=== PATIENT | female | born 1955 | race Caucasian/White ===

== ENCOUNTER 2017-07-07 16:41 | Emergency (ER) | payer MEDICARE, MEDICAID ==
--- NOTE | 2017-07-07 16:47 | ER Report ---
History and Physical Time Seen By MD: 16:41 (ARPITA APARICIO MD) HPI/ROS CHIEF COMPLAINT: Altered mental status HISTORY OF PRESENT ILLNESS: This is a 62 year old female. She was brought to the ER by EMS. Her friend who lives with her stated that he returned from work today and she was unresponsive with gurgling breath sounds. She was sleeping in the morning, so let her sleep in and does not know if she was okay at that time. She went to bed late last night, and that was the last time he can say that she is normal. He said that she has been treated with an antibiotic recently for cellulitis. She sees one of the physicians at [facility], we think Dr. Stuart. Unsure about her other history. Her friend indicated that he is unaware of any advanced directives in place. EMS indicated that she would move her extremities to sternal rub but no response to verbal or other stimuli and does not open her eyes. REVIEW OF SYSTEMS: Unable to obtain. (ARPITA APARICIO MD) Allergies: Coded Allergies: ciprofloxacin (Verified Allergy, Severe, RASH AND WHEEZING, 11/12/16) iodine (Verified Allergy, Severe, APNEA AND BLISTERS, 11/12/16) INTERNAL AND EXTERNAL IODINE Sulfa (Sulfonamide Antibiotics) (Verified Allergy, Mild, WHEEZING, 11/12/16 ) Home Meds Active Scripts Cephalexin 500 Mg Tab (KEFLEX 500 MG TAB) 500 Mg Tablet, 500 MG PO Q8H, #30 TAB Prov:TAMANNA STUART MD 06/27/17 Escitalopram Oxalate (ESCITALOPRAM OXALATE) 20 Mg Tablet, 20 MG PO QDAY, #30 TAB Prov:TAMANNA STUART MD 04/11/17 Fluticasone/Vilanterol 100/25 Mcg/Inh (BREO ELLIPTA 100/25 MCG) 1 Each Aer.pow.ba, 1 INH INH QDAY, #1 INH 2 Refills Prov:TAMANNA STUART MD 10/13/16 Albuterol Sulfate 0.083% (ALBUTEROL SULFATE 0.083%) 2.5 Mg/3 Ml Vial.neb, 2.5 MG INH Q4-6H, #100 INH 11 Refills Prov:TAMANNA STUART MD 10/12/16 Albuterol Sulfate 90 Mcg/Act (PROAIR HFA 90 MCG/ACT) 8.5 Gm Hfa.aer.ad, 1-2 PUFF IH PRN Y for SHORTNESS OF BREATH, #3 INHALER 3 Refills Prov:TAMANNA STUART MD 10/12/16 Rosuvastatin Calcium (Rosuvastatin Calcium) 10 Mg Tablet, 1 TAB PO DAILY, #30 TAB 11 Refills Prov:TAMANNA STUART MD 06/02/16 Reported Medications Zolpidem Tartrate (ZOLPIDEM TARTRATE) 5 Mg Tablet, 0.5 TAB PO QHS, TAB 05/19/17 Calcium Crb&Cit/D3/Min34/Mina (CITRACAL + BONE DENSITY TABLET) 1 Each Tablet, 2 TAB PO QHS 11/12/16 Cholecalciferol (Vitamin D3) (VITAMIN D3) 1,000 Unit Tablet, 2000 UNIT PO QDAY, TAB 06/07/16 Glucosa Horvath 2KCL/Chondroitin Horvath (GLUCOSAMINE & CHONDROITIN CAP) 1 Each Capsule, 1 EACH PO QDAY, CAPSULE 06/07/16 Naproxen Sodium (ALEVE) Unknown Strength Capsule, 1 CAP PO PRN, CAPSULE 06/02/16 Ibuprofen (ADVIL) 200 Mg Tablet, 1-2 TAB PO Q6-8H Y for prn 06/02/16 Mirabegron (MYRBETRIQ) 50 Mg Tab.er.24h, 1 TAB PO DAILY 11/05/15 Solifenacin Succinate (VESICARE) 10 Mg Tablet, 1 TAB PO DAILY 11/05/15 Flaxseed/Omega3,6,9/Fatty Acid (FLAX SEED OIL 1,300 MG SOFTGEL) 1 Each Capsule, 1 EACH PO DAILY, CAPSULE 11/05/15 Euless-3 Fatty Acids (FISH OIL) 300 Mg Capsule, PO DAILY, CAPSULE 11/05/15 Multivit-Min/FA/Lutein/Zeaxant (Macular Vitamin Tablet) 1 Each Tablet, 1 TAB PO DAILY 11/05/15 Past Medical/Surgical History Past medical history: Paraplegia, macular degeneration, hypertension, hyperlipidemia, asthma, superpubic catheter managed by Dr. Jo, osteoporosis , depression, osteomyelitis. Past surgical history tonsillectomy, hysterectomy, spinal surgery. T12-L1 bone fusion with Cevallos rods after fractured spine, multiple skin debridements (BULL MALDONADO DO) Reviewed Nurses Notes: Yes (ARPITA APARICIO MD) Constitutional Vital Sign - Last 24 Hours 07/07/17 07/07/17 07/07/17 07/07/17 16:45 16:45 16:52 17:00 Temp 98.0 Pulse 133 124 111 Resp 55 42 42 B/P (MAP) 124/84 120/71 (87) Pulse Ox 92 92 O2 Delivery Non-Rebreather 07/07/17 07/07/17 07/07/17 07/07/17 17:06 17:12 17:15 17:15 Pulse 124 Resp 6 B/P (MAP) 189/111 (137) 132/76 (94) Pulse Ox 97 FiO2 50.0 07/07/17 07/07/17 07/07/17 07/07/17 17:30 17:45 18:00 18:15 Pulse 118 115 114 109 Resp 14 14 9 Pulse Ox 93 94 95 96 07/07/17 07/07/17 07/07/17 07/07/17 18:26 18:31 18:35 18:42 Pulse 106 Resp 6 B/P (MAP) 142/91 (108) Pulse Ox 97 97 O2 Delivery Mechanical Ventilator FiO2 45.0 45.0 07/07/17 07/07/17 07/07/17 07/07/17 18:46 19:01 19:16 19:21 Pulse 104 103 104 104 Resp 8 13 8 13 Pulse Ox 95 96 96 96 07/07/17 19:36 Pulse 104 Resp 26 B/P (MAP) 142/91 (108) Pulse Ox 97 (BULL MALDONADO DO) Physical Exam General Appearance: Comatose. Unresponsive with non-rebreather in place at 15 liters. Makes a few spontaneous movements of arms, but nothing meaningful. Loud gurgling sounds with breathing. Eyes: Pupils are equal, round. Reactive to light. No pallor, injection or icterus. ENT: Mucous membranes are moist. Lots of debris in her lori and posterior oropharynx. Normal tympanic membranes and canals. Neck: Midline trachea. No swelling noted. Respiratory: Lungs with loud wet rhonchi, unable to appreciate more. Cardiovascular: Unable to hear heart sounds over the breathing. Pulse at 120 radial and PT/DP areas. Slight delay in cap refill. Trace edema in ankles. Gastrointestinal: Abdomen is soft, Nondistended. No masses or organomegaly. Genitourinary: Byrne catheter in place. Smelly urine. Neurological: Paraplegic, no movement of the legs. Has limited movement of arms with painful stimuli. Does not respond otherwise. Skin: Warm and dry. Has skin breakdown in the gluteal fold above the rectum, has some signs of early pressure spots on left heel. Some rough skin in legs. No sign of cellulitis at this time. Musculoskeletal: No deformities noted other than from past surgeries. DIFFERENTIAL DIAGNOSIS: After history and physical exam, differential diagnosis was considered for altered mental status including but not limited to hypoglycemia, infectious process, electrolyte abnormality, head injury and intoxicants. ([facility] Medical Decision Making Data Points Result Diagram: 07/07/17 0000 07/07/17 0000 Laboratory Hematology Test 07/07/17 00:00 07/07/17 16:52 Red Blood Count 4.69 M/uL (4.17-5.56) Mean Corpuscular Volume 84.0 fL (80.0-96.0) Mean Corpuscular Hemoglobin 28.3 pg (26.0-33.0) Mean Corpuscular Hemoglobin Concent 33.6 g/dL (32.0-36.0) Red Cell Distribution Width 14.6 % (11.5-14.5) Mean Platelet Volume 7.2 fL (7.2-11.1) Neutrophils (%) (Auto) 93.5 % (39.4-72.5) Lymphocytes (%) (Auto) 2.4 % (17.6-49.6) Monocytes (%) (Auto) 4.0 % (4.1-12.4) Eosinophils (%) (Auto) 0.0 % (0.4-6.7) Basophils (%) (Auto) 0.1 % (0.3-1.4) Nucleated RBC Relative Count (auto) 0.0 /100WBC Neutrophils # (Auto) 22.1 K/uL (2.0-7.4) Lymphocytes # (Auto) 0.6 K/uL (1.3-3.6) Monocytes # (Auto) 1.0 K/uL (0.3-1.0) Eosinophils # (Auto) 0.0 K/uL (0.0-0.5) Basophils # (Auto) 0.0 K/uL (0.0-0.1) Nucleated RBC Absolute Count (auto) 0.00 K/uL Peripheral Blood Smear Yes Y/N Sodium Level 135 mmol/L (137-145) Potassium Level 3.3 mmol/L (3.5-5.0) Chloride Level 99 mmol/L (98-107) Carbon Dioxide Level 21 mmol/L (22-31) Blood Urea Nitrogen 17 mg/dl (7-18) Creatinine 0.50 mg/dl (0.52-1.04) Glomerular Filtration Rate Calc > 60.0 Random Glucose 171 mg/dl (75-110) Lactate 1.8 mmol/L (0.7-2.1) Calcium Level 9.1 mg/dl (8.4-10.2) Total Bilirubin 0.7 mg/dl (0.2-1.3) Aspartate Amino Transf (AST/SGOT) 28 U/L (0-35) Alanine Aminotransferase (ALT/SGPT) 34 U/L (0-56) Alkaline Phosphatase 105 U/L (0-126) Total Protein 7.9 gm/dl (6.3-8.2) Albumin 4.1 g/dl (3.5-5.0) Prothrombin Time 13.6 seconds (12.0-14.4) Prothromb Time International Ratio 1.04 Activated Partial Thromboplast Time 25 seconds (23-35) Chemistry Test 07/07/17 00:00 07/07/17 16:52 White Blood Count 23.7 k/uL (4.5-11.0) Red Blood Count 4.69 M/uL (4.17-5.56) Hemoglobin 13.2 g/dL (12.0-16.0) Hematocrit 39.4 % (34.0-47.0) Mean Corpuscular Volume 84.0 fL (80.0-96.0) Mean Corpuscular Hemoglobin 28.3 pg (26.0-33.0) Mean Corpuscular Hemoglobin Concent 33.6 g/dL (32.0-36.0) Red Cell Distribution Width 14.6 % (11.5-14.5) Platelet Count 592 K/uL (150-450) Mean Platelet Volume 7.2 fL (7.2-11.1) Neutrophils (%) (Auto) 93.5 % (39.4-72.5) Lymphocytes (%) (Auto) 2.4 % (17.6-49.6) Monocytes (%) (Auto) 4.0 % (4.1-12.4) Eosinophils (%) (Auto) 0.0 % (0.4-6.7) Basophils (%) (Auto) 0.1 % (0.3-1.4) Nucleated RBC Relative Count (auto) 0.0 /100WBC Neutrophils # (Auto) 22.1 K/uL (2.0-7.4) Lymphocytes # (Auto) 0.6 K/uL (1.3-3.6) Monocytes # (Auto) 1.0 K/uL (0.3-1.0) Eosinophils # (Auto) 0.0 K/uL (0.0-0.5) Basophils # (Auto) 0.0 K/uL (0.0-0.1) Nucleated RBC Absolute Count (auto) 0.00 K/uL Peripheral Blood Smear Yes Y/N Glomerular Filtration Rate Calc > 60.0 Lactate 1.8 mmol/L (0.7-2.1) Calcium Level 9.1 mg/dl (8.4-10.2) Total Bilirubin 0.7 mg/dl (0.2-1.3) Aspartate Amino Transf (AST/SGOT) 28 U/L (0-35) Alanine Aminotransferase (ALT/SGPT) 34 U/L (0-56) Alkaline Phosphatase 105 U/L (0-126) Total Protein 7.9 gm/dl (6.3-8.2) Albumin 4.1 g/dl (3.5-5.0) Prothrombin Time 13.6 seconds (12.0-14.4) Prothromb Time International Ratio 1.04 Activated Partial Thromboplast Time 25 seconds (23-35) Coagulation Test 07/07/17 16:52 Prothrombin Time 13.6 seconds Prothromb Time International Ratio 1.04 Activated Partial Thromboplast Time 25 seconds (BULL MALDONADO DO) EKG/Imaging Imaging Results: CT scan of the head was obtained. The results of the study are EXAMINATION: CT head/brain without contrast HISTORY: Altered mental status TECHNIQUE: Contiguous axial images were obtained from the skull base to the vertex without intravenous contrast. One of the following dose optimization techniques was utilized in the performance of this exam: Automated exposure control; adjustment of the mA and/ or kV according to the patient's size; or use of an iterative reconstruction technique. Specific details can be referenced in the facility's radiology CT exam operational policy. COMPARISON STUDIES: None FINDINGS: There is a large right parenchymal hemorrhage epicenter in the right basal ganglia region with the major hemorrhagic component measuring approximately 7 x 4.6 x 3.5 cm. Additional parenchymal satellite hemorrhagic changes are seen within the right frontal lobe are seen measuring up to 2.5 cm in size. Pneumbra of edema circumscribing the hemorrhage. 8 mm midline shift from right to left. There is an intraventricular extension of the hemorrhage with the right frontal lateral occipital third and fourth ventricles are demonstrating blood. Subarachnoid blood is also seen in the right frontal lobe. Small subarachnoid blood seen in the upper vertex cuts of the left frontal lobe (axial image 67.) There is a small amount of perceived blood paralleling the falx anteriorly. Additional subarachnoid blood is seen in the left posterior parietal lobe (images 48 through 58) and a small amount of subarachnoid blood seen in the left occipital lobe (image 52.) Bone images demonstrates no calvarial or skull base abnormalities. Impression: 1. Large right parenchymal hemorrhage with an epicenter in the right basal ganglia with extension into the right frontal lobe as described. This is associated with interventricular blood. There is subarachnoid blood seen in the right frontal lobe. 8 mm midline shift from right to left 2. Additional areas of subarachnoid blood seen in the left frontal posterior parietal and occipital lobes. 3. Etiology of the hemorrhage could be hypertensive in nature with extension into the ventricular system. Amyloid angiopathy also a possibility. The left subarachnoid blood could represent secondary posttraumatic subarachnoid blood is the patient experienced a fall. The study was read by the radiologist. I viewed the images myself on the PACS system. Results: CT scan of the chest, abdomen and pelvis was obtained. The results of the study are Examination: CT chest, abdomen, and pelvis with contrast Comparison: None. History: altered mental status. Procedure: Multiplanar contrast-enhanced imaging of the chest, abdomen, and pelvis with 75 mL intravenous Isovue 370. One of the following dose optimization techniques was utilized in the performance of this exam: Automated exposure control; adjustment of the mA and/or kV according to the patient's size ; or use of an iterative reconstruction technique. Specific details can be referenced in the facility's radiology CT exam operational policy. Findings: CT chest: Mediastinum: Cardiac chamber size is normal. No pericardial effusion. Main pulmonary artery size is normal. Thoracic aorta minimal atherosclerosis. No aneurysm or dissection. No mediastinal hemorrhage. No thoracic lymph node enlargement. Lungs and pleura: Ill-defined patchy consolidation and tree-in-bud nodular density in both lower lungs. No pneumothorax, edema, or effusion. Airways: Tip of the endotracheal tube is 1.6 cm above the arleth. Moderate tracheomalacia of the trachea distal to the endotracheal tube as well as mild bilateral bronchomalacia. Diaphragm: Intact. CT abdomen and pelvis: Liver: Negative Gallbladder and biliary system: Cholelithiasis. No pericholecystic inflammation. 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 No renal mass or hydronephrosis. Urinary bladder contains a suprapubic catheter. Vessels: Moderate aortoiliac atherosclerosis. No aneurysm. No retroperitoneal hemorrhage. Portal venous system and IVC are unremarkable. Bowel and mesentery: Stomach is mildly distended but otherwise unremarkable. No small bowel obstruction. Appendix is within normal limits. Minimal stool in the colon. No bowel or mesenteric inflammation. Pelvic organs: Hysterectomy. No adnexal mass. Free air/free fluid: None Lymph nodes: Negative Abdominal wall and subcutaneous tissues: Abdominal wall is intact. No focal abnormality within the visualized subcutaneous soft tissues. Osseous structures: Thoracolumbar spine: Thoracolumbar junction posterior fusion with laminar hooks at T10 and L2. Surgical hardware is intact and there is no evidence of acute thoracolumbar vertebral body height loss or malalignment. Pelvic ring: Severe chronic-appearing distortion of the pelvis and hips. Sacroiliac joint alignment is maintained with partial fusion of the right sacroiliac joint. Advanced destruction and resorption of the pubic symphysis. Both hips are dislocated with near-complete resorption of both femoral head and necks. Additionally, there is irregular destruction of sclerosis of both inferior pubic rami concerning for osteomyelitis. There is extensive increased density and inflammation of the soft tissues surrounding particularly the right inferior pubic ramus as well as a 1.0 x 2.0 x 2.2 cm fluid collection in the region of the issue tuberosity. A separate 2.4 x 1.4 x 1.3 cm collection is present along the posterior margin of the right inferior pubic ramus. There is likely a 1 cm fluid collection in the superficial subcutaneous soft tissues as well. Ribs: No acute findings. Visualized sternum, scapula, and clavicles: No acute fracture. Bilateral glenohumeral osteoarthritis. IMPRESSION: 1. Intubation. 2. Bilateral lower lung patchy consolidation and ill-defined tree-in-bud density suggestive of an infectious bronchiolitis versus aspiration pneumonitis. 3. 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 Additional nonacute findings as detailed above. The study was read by the radiologist. I viewed the images myself on the PACS system. (BULL MALDONADO DO) ED Course/Re-evaluation ED Course Procedure: Rapid sequence intubation. Indication for the procedure was respiratory failure and GCS of 3. The patient was preoxygenated with 100% oxygen by bag-valve mask. The patient was given the following IV medications: rocuronium and Etomidate, further sedation with propofol. The patient was orally endotracheally intubated using the Glidescope with a 7.0 ETT. Unable to pass ETT despite good visualization. Use of bouge device through cords with visualization and passing ETT over the bouge. Tracheal intubation was confirmed by direct visualization; with misting on the tube; breath sounds were auscultated equally bilaterally; Appropriate change on CO2 detector/capnography monitor. Chest X-ray shows ETT in good position. The procedure was performed by my PA, Rodriguez, and myself. (ARPITA APARICIO MD) Clinical Indication for ER IV: IV Access ED Course Care was assumed at shift change with diagnostic CT pending from Dr. Aparicio. Patient intubated on ventilator. Her vitals are stable. Her saturations are adequate. CAT scan returns with obvious large large parenchymal hemorrhage 7 cm at its largest dimension with 8 mm of midline shift. Patient's records were finally obtained. From internal medicine clinic. She was seen on June 27 for cellulitis of the right lower extremity and started on Keflex. Patient's on ventilator something rate of 14, tidal volume 450, PEEP of 5, pressure support of 15, FiO2 of 45. Patient's vital signs are stable. A blood pressure of 142/90, heart rate of 103, patient was given Zosyn for possible aspiration pneumonia. 07/07/2017 7:02:03 pm case discussed with Dr. Hernandez neurosurgery at [facility] who advises transfer to [facility] in [place], [place]. Transfer center will again activating connection with them. 07/07/2017 7:15:11 pm case discussed with Dr. Mejía, neurology at [facility]. He will call back shortly with neurosurgical consultation. They will accept the patient for transfer. 07/07/2017 7:28:37 pm case discussed with Dr. Hernandez neurosurgery at the [facility], who accepts the patient for transfer to her facility. Transfer will occur by air ambulance, which should be here in 10 minutes. Decision to Disposition Date: Jul 07, 2017 Decision to Disposition Time: 18:39 Critical Care Time I spent a total of 90 minutes of critical care time in obtaining history, performing a physical exam, bedside monitoring of interventions, collecting and interpreting tests and discussion with consultants but not including time spent performing procedures. (BULL MALDONADO DO) Depart Departure Latest Vital Signs Vital Signs Date Time Temp Pulse Resp B/P (MAP) Pulse Ox O2 Delivery O2 Flow Rate FiO2 07/07/17 19:36 104 26 142/91 (108) 97 07/07/17 18:42 45.0 07/07/17 18:35 Mechanical Ventilator 07/07/17 16:45 98.0 (BULL MALDONADO DO) Impression: Primary Impression: Intraparenchymal hemorrhage of brain Additional Impressions: History of paraplegia History of asthma History of hyperlipidemia Suprapubic catheter Condition: Critical Disposition: [facility]FER TO [facility] Problem Qualifiers ARPITA APARICIO MD Jul 07, 2017 16:47 BULL MALDONADO DO Jul 07, 2017 18:40
[2017-07-07] MEDS ORDERED: NS(*) 0.9% 1000 ML BAG 1,000 ML IV ONE (16:50)
[2017-07-07] MEDS ORDERED: PROPOFOL(*)1000 MG/100 ML VIAL 100 ML IV PRN (17:30)
[2017-07-07] MEDS ORDERED: EMS NS 0.9%(*) 1000 ML BAG 1,000 ML IV ONE (17:30)
[2017-07-07] MEDS ORDERED: ROCURONIUM BROM 10 MG/ML 10 ML IVP ONE (17:30)
[2017-07-07] MEDS ORDERED: ETOMIDATE 20 MG/10 ML VIAL IVP ONE (17:30)
[2017-07-07 17:36] LABS: PLATELET COUNT, AUTOMATED 592 K/uL (150-450)
[2017-07-07] MEDS ORDERED: IOPAMIDOL 76% 75 ML INFUS BTL 75 ML ONE (17:44)
--- NOTE | 2017-07-07 17:48 | RADIOLOGY IMAGING REPORT ---
FACILITY: [facility] [place] PATIENT NAME: Emi Valdez : 1955 MR: [id number] V: [id number] EXAM DATE: ORDERING PHYSICIAN: ARPITA APARICIO TECHNOLOGIST: Location: [facility] [place] Patient: Emi Valdez : 1955 Visit/Account:[id number] Date of Sevice: 07/07/2017 Examination: CHEST SINGLE AP Comparison: None. History: Altered mental status. Findings: Tip of the endotracheal tube is approximately 4 cm above the arleth. Cardiac and hilar cont our size is within normal limits. No consolidation, nodule, or peribronchial inflammation. Incomplete ly visualized thoracolumbar hardware. Osseous structures are intact. IMPRESSION: 1. Intubation. 2. No evidence of acute cardiopulmonary disease. Report Dictated By: Leonidas Landry MD at 07/07/2017 5:42 PM Report E-Signed By: Leonidas Landry MD at 07/07/2017 5:43 PM WSN:[id number]
[2017-07-07 18:39] LABS: INR 1.04
--- NOTE | 2017-07-07 18:44 | RADIOLOGY IMAGING REPORT ---
FACILITY: [facility] [place] PATIENT NAME: Emi Valdez : 1955 MR: [id number] V: [id number] EXAM DATE: ORDERING PHYSICIAN: ARPITA APARICIO TECHNOLOGIST: Location: [facility] [place] Patient: Emi Valdez : 1955 Visit/Account:[id number] Date of Sevice: 07/07/2017 HEAD W/O CONTRAST EXAMINATION: CT head/brain without contrast HISTORY: Altered mental status TECHNIQUE: Contiguous axial images were obtained from the skull base to the vertex without intravenou s contrast. One of the following dose optimization techniques was utilized in the performance of this exam: Autom ated exposure control; adjustment of the mA and/or kV according to the patient's size; or use of an i terative reconstruction technique. Specific details can be referenced in the facility's radiology C T exam operational policy. COMPARISON STUDIES: None FINDINGS: There is a large right parenchymal hemorrhage epicenter in the right basal ganglia region with the ma tim hemorrhagic component measuring approximately 7 x 4.6 x 3.5 cm. Additional parenchymal satellite hemorrhagic changes are seen within the right frontal lobe are seen measuring up to 2.5 cm in size. P neumbra of edema circumscribing the hemorrhage. 8 mm midline shift from right to left. There is an intraventricular extension of the hemorrhage with the right frontal lateral occipital thi rd and fourth ventricles are demonstrating blood. Subarachnoid blood is also seen in the right fronta l lobe. Small subarachnoid blood seen in the upper vertex cuts of the left frontal lobe (axial image 67.) The re is a small amount of perceived blood paralleling the falx anteriorly. Additional subarachnoid bloo d is seen in the left posterior parietal lobe (images 48 through 58) and a small amount of subarachno id blood seen in the left occipital lobe (image 52.) Bone images demonstrates no calvarial or skull base abnormalities. Impression: 1. Large right parenchymal hemorrhage with an epicenter in the right basal ganglia with extension int o the right frontal lobe as described. This is associated with interventricular blood. There is subar achnoid blood seen in the right frontal lobe. 8 mm midline shift from right to left 2. Additional areas of subarachnoid blood seen in the left frontal posterior parietal and occipital l obes. 3. Etiology of the hemorrhage could be hypertensive in nature with extension into the ventricular sys tem. Amyloid angiopathy also a possibility. The left subarachnoid blood could represent secondary pos ttraumatic subarachnoid blood is the patient experienced a fall. Report Dictated By: Gio Finley MD at 07/07/2017 6:20 PM Report E-Signed By: Gio Finley MD at 07/07/2017 6:39 PM WSN:[id number]
[2017-07-07 19:36] VITALS: BP 142/91
--- NOTE | 2017-07-07 19:40 | RADIOLOGY IMAGING REPORT ---
FACILITY: [facility] PATIENT NAME: Emi Valdez : 1955 MR: [id number] V: [id number] EXAM DATE: ORDERING PHYSICIAN: ARPITA APARICIO TECHNOLOGIST: Location: [facility] [place] Patient: Emi Valdez : 1955 Visit/Account:[id number] Date of Sevice: 07/07/2017 Examination: CT chest, abdomen, and pelvis with contrast Comparison: None. History: altered mental status. Procedure: Multiplanar contrast-enhanced imaging of the chest, abdomen, and pelvis with 75 mL intrave nous Isovue 370. One of the following dose optimization techniques was utilized in the performance of this exam: Automated exposure control; adjustment of the mA and/or kV according to the patient's siz e; or use of an iterative reconstruction technique. Specific details can be referenced in the [facility]'s radiology CT exam operational policy. Findings: CT chest: Mediastinum: Cardiac chamber size is normal. No pericardial effusion. Main pulmonary artery size is n ormal. Thoracic aorta minimal atherosclerosis. No aneurysm or dissection. No mediastinal hemorrhage. No thoracic lymph node enlargement. Lungs and pleura: Ill-defined patchy consolidation and tree-in-bud nodular density in both lower lung s. No pneumothorax, edema, or effusion. Airways: Tip of the endotracheal tube is 1.6 cm above the arleth. Moderate tracheomalacia of the trac hea distal to the endotracheal tube as well as mild bilateral bronchomalacia. Diaphragm: Intact. CT abdomen and pelvis: Liver: Negative Gallbladder and biliary system: Cholelithiasis. No pericholecystic inflammation. 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 No re nal mass or hydronephrosis. Urinary bladder contains a suprapubic catheter. Vessels: Moderate aortoiliac atherosclerosis. No aneurysm. No retroperitoneal hemorrhage. Portal veno us system and IVC are unremarkable. Bowel and mesentery: Stomach is mildly distended but otherwise unremarkable. No small bowel obstructi on. Appendix is within normal limits. Minimal stool in the colon. No bowel or mesenteric inflammation . Pelvic organs: Hysterectomy. No adnexal mass. Free air/free fluid: None Lymph nodes: Negative Abdominal wall and subcutaneous tissues: Abdominal wall is intact. No focal abnormality within the v isualized subcutaneous soft tissues. Osseous structures: Thoracolumbar spine: Thoracolumbar junction posterior fusion with laminar hooks at T10 and L2. Surgic al hardware is intact and there is no evidence of acute thoracolumbar vertebral body height loss or m alalignment. Pelvic ring: Severe chronic-appearing distortion of the pelvis and hips. Sacroiliac joint alignment i s maintained with partial fusion of the right sacroiliac joint. Advanced destruction and resorption o f the pubic symphysis. 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 Additionally, there is irregular destruction of sclerosis of both inferior pubic rami concer skye for osteomyelitis. There is extensive increased density and inflammation of the soft tissues lili rounding particularly the right inferior pubic ramus as well as a 1.0 x 2.0 x 2.2 cm fluid collection in the region of the issue tuberosity. A separate 2.4 x 1.4 x 1.3 cm collection is present along the posterior margin of the right inferior pubic ramus. There is likely a 1 cm fluid collection in the s uperficial subcutaneous soft tissues as well. Ribs: No acute findings. Visualized sternum, scapula, and clavicles: No acute fracture. Bilateral glenohumeral osteoarthritis. IMPRESSION: 1. Intubation. 2. Bilateral lower lung patchy consolidation and ill-defined tree-in-bud density suggestive of an inf ectious bronchiolitis versus aspiration pneumonitis. 3. 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 Additional nonacute findings as detailed above. Results were discussed with James Melton at 07/07/2017 7:34 PM. Report Dictated By: Leonidas Landry MD at 07/07/2017 7:10 PMReport E-Signed By: Leonidas Landry MD at 07/07/2017 7:36 PM WSN:[id number]
[2017-07-07] MEDS ORDERED: PIPERACILLIN/TAZO*3.375GM VIAL 3.375 GM in NS(*) 0.9% 100 ML ADDVANT BAG 100 ML IVPB ONE (19:50)
[2017-07-08] MEDS ORDERED: HYDROmorphone(ER ONLY) 1 MG/ML IVP ONE (05:25)
== END 2017-07-07 20:35 | disposition short-term general hospital (02) ==
LOC: MERGE 16:46 → ER 16:46
DX: I61.8 Other nontraumatic intracerebral hemorrhage (principal); Z96.89 Presence of other specified functional implants
CPT/HCPCS: 31500; 70450; 71045; 71260; 74177; 83605; 85025; 85610; 85730; 87040; 94002; 94770; 96361; 96365; 96375; 99291; 99292; J2543; J2704; J3490; J7030; J7050; Q9967; 82040; 82247; 82310; 82374; 82435; 82565; 82947; 84075; 84132; 84155; 84295; 84450; 84460; 84520; 99285

== ENCOUNTER → 2017-07-07 | Outpatient (REF) ==
[~2017-07-07] MED LIST: 0.910DIS20 IJ; ACE120S PR; ACE325 PO; ALBU2.5V36 INH; ALBU8.5H IH; ALBUDR INH; ALE70 PO; ASCO-599 PO; ATR10 PO; BENA40TA51 PO; BUDE10.25 IH; CALC-854 PO; CALC200 PO; CALC250T7 PO; CALC500T42 PO; CEPH500T7 PO; CHOL10005 PO; CHON250C2 PO; CIP500 PO; CLO75 PO; DEN60I SUBQ; ENO40I SQ; ESC10 PO; ESCI10TA8 PO; ESCI20TA8 PO; EZET1TAB63 PO; FLAX1CAP4 PO; FLUT1AER INH; FOL1 PO; GLUC-198 PO; GLY5 PO; IBU800 PO; IBUP-1687 PO; LEV25 PO; LISI20TA29 PO; MET500 PO; MIRA50TA PO; MULT-5 PO; NAPR220C12 PO; OMEG300C PO; PAN40 PO; PER PO; POTA20PA10 PO; ROSU10TA13 PO; SIMV-49 PO; SOLI10TA8 PO; TER20I SQ; TRAZ-156 PO; UBID400C2 PO; ZOLP-1 PO; ZOLP-358 PO; ZOLP-360 PO; ZOS3.375P IV; [UNRECOGNIZED DRUG - CODE] IV; [UNRECOGNIZED DRUG - CODE] IV; [UNRECOGNIZED DRUG - CODE] IV; [UNRECOGNIZED DRUG - CODE] IV; [UNRECOGNIZED DRUG - CODE] PO; [UNRECOGNIZED DRUG - CODE] PO; [UNRECOGNIZED DRUG - CODE] PO
== END ==
LOC: AMB 19:23
PROVIDERS: ATTEND Nurse Practitioner
DX: Z02.9 Encounter for administrative examinations, unspecified (principal)

== ENCOUNTER → 2017-07-07 | Outpatient (CLI) | payer MEDICARE, MEDICAID | LOC: AMB 16:18 | PROVIDERS: ATTEND Nurse Practitioner | DX: R40.4 Transient alteration of awareness (principal); R09.02 Hypoxemia; R06.00 Dyspnea, unspecified; R00.0 Tachycardia, unspecified; R11.10 Vomiting, unspecified | CPT/HCPCS: A0425; A0427 ==